=== PATIENT | female | born 1980 | race Caucasian/White ===

== ENCOUNTER 2020-08-25 15:17 | Emergency (ER) | payer OTHER ==
[~2020-08-25] VITALS: Ht 180.3 cm; Wt 104.5 kg
[2020-08-25 15:21] VITALS: BP 142/96; PULSE 89; TEMP 98.1
== END 2020-08-25 17:00 | disposition left against medical advice (07) ==
LOC: COL.ER 15:17
DX: R07.9 Chest pain, unspecified (principal)